=== PATIENT | female | born 1970 | race Caucasian/White ===

== ENCOUNTER 2023-02-21 14:33 | Emergency (ER) | payer BC, SELFPAY ==
--- NOTE | ~2023-02-21 | CT_ITS ---
EXAMINATION: CTA OF THE HEAD AND NECK CLINICAL INFORMATION: Right arm weakness and tingling. COMPARISON: None available. TECHNIQUE: Test bolus sequences followed by intravenous administration 70 mL of Omnipaque 350. Helical imaging was performed in the axial plane from the mediastinum to the skull vertex. Delayed postcontrast imaging of the head was also performed. The data was processed at the ophthalmic technologist's workstation for generation of MIP sequences. Three-dimensional volume rendered reformatted images were also generated at an offline 3-D workstation. Stenoses are assessed in accordance with NASCET criteria unless otherwise indicated. This CT examination was performed using dose optimization techniques as appropriate, variously including the following: *Automated exposure control *Adjustment of mA and/or kV according to patient size (this includes techniques or standardized protocols for targeted exams where dose is matched to indication/reason for exam; i.e. extremities or head) *Use of iterative reconstruction technique DLP: 1503 mGy-cm. FINDINGS: CT head: There is no evidence of acute intracranial hemorrhage or territorial infarction. There is no loss of vasquez to white matter differentiation. No abnormal mass effect or midline shift is seen. No extra-axial fluid collections are identified. There is no abnormal enhancement. The ventricles are normal in size. There is no abnormal attenuation within the brain parenchyma. The osseous structures and soft tissues are normal. The mastoid air cells and visualized portions of the paranasal sinuses are well aerated. CTA neck: The imaged aortic arch and origins of the great vessels are normal. The common carotid arteries are widely patent. The carotid bifurcations are normal. The cervical internal carotid arteries are normal. The vertebral arteries opacify normally and are of normal caliber. The soft tissues of the neck are unremarkable. Multilevel cervical spondylosis noted, particularly at the C3-C4 level with uncovertebral joint spurring and facet arthropathy resulting in severe left foraminal narrowing. The imaged portions of the lungs are relatively clear with mild subsegmental atelectasis. CTA head: The intradural vertebral arteries and basilar artery are normal. The posterior cerebral arteries are widely patent. The internal carotid arteries are of normal caliber. The JAX and MCA vascular complexes bilaterally are normal. The venous sinuses opacify normally. CT/CT angio head neck stroke IMPRESSION: Normal CT angiogram of the head and neck. No acute intracranial process. Imaging findings reported to Dr. Lehman at 3:40 PM on 02/21/2023.
--- NOTE | ~2023-02-21 | MR_ITS ---
EXAMINATION: MR BRAIN WITHOUT CONTRAST CLINICAL INFORMATION: Rule out stroke. Right arm weakness reported on CT imaging. COMPARISON: CT from 02/21/2023. TECHNIQUE: Multiplanar, multisequence imaging of the brain was performed without contrast. FINDINGS: No diffusion abnormalities are identified to suggest an acute infarct. The ventricles are normal in size. No mass effect or midline shift is seen. Minimal right frontal white matter signal changes noted which are nonspecific. No extra-axial fluid collections are seen. The brainstem and cerebellum are normal. The gradient refocused acquisition is normal. The craniovertebral junction, marrow signal, and midline structures are normal. The major intracranial flow voids at the level of the [place] are preserved. The dural venous sinus flow voids are maintained. The mastoid air cells and paranasal sinuses are well aerated. Left-sided hypertrophic facet arthropathy noted at the C3-C4 and C4-C5 levels. MR/MR head/brain wo con IMPRESSION: Minimal nonspecific right frontal white matter signal changes. Otherwise, no acute process. Left-sided hypertrophic facet arthropathy in the upper cervical spine.
--- NOTE | ~2023-02-21 | CT_ITS ---
EXAMINATION: CT HEAD WITHOUT CONTRAST (STROKE PROTOCOL) CLINICAL INFORMATION: Stroke protocol. Right arm weakness COMPARISON: None available. TECHNIQUE: Contiguous axial imaging was performed from the skull base to vertex without intravenous administration of contrast. This CT examination was performed using dose optimization techniques as appropriate, variously including the following: *Automated exposure control *Adjustment of mA and/or kV according to patient size (this includes techniques or standardized protocols for targeted exams where dose is matched to indication/reason for exam; i.e. extremities or head) *Use of iterative reconstruction technique DLP: 644 mGy-cm FINDINGS: No intra or extra-axial fluid collection or hemorrhage, mass, or mass effect. Sulci and ventricles appear normal. Calvarium intact. CT/CT head for stroke IMPRESSION: No acute intracranial pathology. Results will be telephoned by the [facility], to the emergency room. Results were telephoned in to Marisa Lehman, at 3:03 PM.
--- NOTE | 2023-02-21 14:44 | ECG_ITS ---
Test Reason : STROKE Blood Pressure : / mmHG Vent. Rate : 059 BPM Atrial Rate : 059 BPM P-R Int : 182 ms QRS Dur : 094 ms QT Int : 440 ms P-R-T Axes : 059 060 074 degrees QTc Int : 435 ms Sinus bradycardia Low voltage QRS Borderline ECG No previous ECGs available Referred By: Marisa Lehman Electronically Signed By:GEENA VIRAMONTES
[2023-02-21 14:50] VITALS: BP 152/90; PULSE 67; O2SAT 98
--- NOTE | 2023-02-21 14:50 | PC.NURSE ---
Pt off floor to CT.
--- NOTE | 2023-02-21 14:55 | ED.NEUROSD ---
HPI - Neuro Symptoms/Deficit General Chief Complaint: Weakness Stated Complaint: R WEAKNESS,TINGLY R FACE TO LEG PER EMS Time Seen by Provider: 02/21/23 14:41 Source: patient and EMS Mode of arrival: EMS Limitations: no limitations History of Present Illness HPI Narrative: Patient comes to emergency room complaining of right-sided weakness in her arm and tingling to the right face, arm and leg. According to EMS and the patient, patient was out shopping at the mall, patient had sudden onset of symptoms approximately 1 hour ago. When EMS arrived, the patient was crying, they are NIH score was 0. On arrival to the emergency room, patient was still crying, scared, NIH score of 0. Patient states that she feels that her right arm is weak and her face is tingly. According to the paramedics, even before the patient went shopping today, she already had some sensation of numbness/tingling since early in the morning. Related Data Previous Rx's Medication Instructions Recorded meclizine 50 mg tablet 50 mg PO BID PRN motion sickness 02/21/23 #14 tabs Allergies Allergy/AdvReac Type Severity Reaction Status Date / Time No Known Allergies Allergy Verified 02/21/23 14:43 Review of Systems Review of Systems: Constitutional : No Weight loss, No Fever, No Chills, No Night Sweats, No Fatigue, No Malaise ENT/Mouth : No Hearing loss, No Ear Pain, No Nasal Congestion, No Sinus Pain, No Hoarseness, No sore throat, No Rhinorrhea, No Swallowing Difficulty Eyes: No Eye Pain, No Swelling, No Redness, No Foreign Body, No Discharge, No Vision Changes Cardiovascular : No Chest Pain, No SOB, No Dyspnea on Exertion, No Orthopnea, No Edema, No Palpitations Respiratory : No Cough, No Sputum, No Wheezing, No Smoke Exposure, No Dyspnea Gastrointestinal : No Nausea, No Vomiting, No Diarrhea, No Constipation, No abdominal Pain, No Hematochezia, No Melena Genitourinary : no irregular bleeding, No Dysuria, No Urinary Frequency, No Hematuria, No Urinary Incontinence, No Urgency, No Flank Pain, No Urinary Flow Changes, No Hesitancy Musculoskeletal : No joint pain, No Myalgias, No Joint Swelling Skin : No Skin Lesions, No rash Neuro : Patient complaining of weakness in the right arm, tingling in the right side of the face arm and leg Psych : No Anxiety/Panic, No Depression, No SI/HI/AH/VH, No Social Issues, Heme/Lymph: No Bruising, No Bleeding,No Lymphadenopathy Endocrine : No Polyuria, No Polydipsia, No Temperature Intolerance [facility] Past Medical History Medical History (Updated 02/21/23 @ 19:56 by Marisa Lehman MD) Hyperlipidemia Social History Social History Smoked in Last 30 Days: No Use of substances other than those prescribed or required for medical reasons: No Advance Directives: No Advance Directives Information Provided: No Patient : No Physical Exam Vital Signs: Vital Signs: Last Vital Signs Temp 98.5 F 02/21/23 17:57 Pulse 61 02/21/23 17:57 Resp 15 02/21/23 17:57 BP 115/75 02/21/23 17:57 Pulse Ox 97 02/21/23 17:57 O2 Del Method Room Air 02/21/23 17:57 BMI result Body Mass Index 28.1 Const: Other: Appearance: Alert. Oriented X3. Scared, crying Eyes: Pupils equal, round and reactive to light. ENT: Pharynx normal. Neck: Normal inspection. Neck supple. No lymph nodes noted. No crepitus CVS: Normal heart rate and rhythm. Pulses normal. Normal S1 and S2 Respiratory: No respiratory distress. Breath sounds normal. No Wheezing. No rales Abdomen: Soft and nontender. No rigidity. No distention. Skin: Skin warm and dry. Normal skin color. Normal skin turgor. Extremities: No lower extremity edema. No Lacerations. No Rash Neuro: Oriented X 3. No motor deficit. Patient has normal speech, moving all extremities. When patient came in, she says that she had decreased strength in her right arm, however, it seemed that patient was not putting enough effort on physical exam on the right side, but with encouragement, patient was able to get good normal strength on both hands and both legs, getting an NIH score of 0 Psych: calm, cooperative, scared, crying Medications Administered Discontinued Medications Generic Name Dose Route Start Last Admin Trade Name Freq PRN Reason Stop Dose Admin Diazepam 2 mg 02/21/23 16:21 02/21/23 16:46 Diazepam 2 Mg Tablet PO 02/21/23 16:22 2 mg ONCE ONE Administration Iohexol 70 ml 02/21/23 15:15 02/21/23 15:16 Iohexol 350 Mg/Ml 100 Ml Infus..Btl IV 02/21/23 15:16 70 ml ONCE ONE Administration Meclizine HCl 50 mg 02/21/23 16:21 02/21/23 16:46 Meclizine Hcl 25 Mg Tablet PO 02/21/23 16:22 50 mg ONCE ONE Administration Medical Decision Making Medical Decision Making [facility] Narrative: -I discussed the CT scan without contrast of the brain with Radiology, no acute findings -I also discussed the CTA findings of head and neck with [place] radiologist on-call, no acute findings -NIH score 0 -the stroke team also participated in the patient's evaluation, they also got an NIH score of 0. -at this time, tPA is not recommended -patient seems to have history of migraines, anxiety. -doctor Tami assessed the patient at bedside, patient's symptoms seem to be more likely secondary to a middle ear problem rather than stroke. Physical exam is not compatible with any specific lesion/stroke -patient getting p.o. meclizine and p.o. diazepam to help with her symptoms. -recommendations: MRI without contrast, which is pending. MRI results: Nonspecific right frontal white matter signal changes, otherwise no acute process. -patient feels back to baseline, has mild headache, no neurological deficits, patient was able to ambulate with normal unassisted gait to the bathroom. Patient did not have any falls or unsteady gait. Differential Diagnosis Differential Diagnoses: The differential diagnosis associated with the presentation includes (CVA, TIA, vertigo, BPPV, anxiety) Admission/Observation Consideration of admission/observation: Escalation of care including admission/observation considered (Given patient's initial presentation, admission was considered) Consult Healthcare Provider Management of the patient was discussed with: Package Worker Lab Data [facility] Lab Attestation statement: I reviewed the patient's lab results. 02/21/23 15:56 02/21/23 15:56 Labs: Lab Results 02/21/23 02/21/23 02/21/23 Range/Units 15:56 16:02 Unknown WBC 5.4 (4.8-10.8) X10*3/uL RBC 4.46 (4.20-5.50) X10*6/uL Hgb 13.3 (12.0-16.0) g/dl Hct 39.4 (37.0-47.0) % MCV 88.3 (80.0-98.0) fL MCH 29.8 (27.0-33.0) pg MCHC 33.8 (31.0-35.0) g/dl RDW 12.4 (11.0-16.0) % Plt Count 249 (160-400) X10*3/uL MPV 9.2 L (9.4-12.3) fL Immature Gran % (Auto) 0.2 (0.0-0.4) % Neut % (Auto) 52.8 (45-73) % Lymph % (Auto) 36.0 (20-40) % [place] % (Auto) 8.1 (2-11) % Eos % (Auto) 2.2 (0-4) % Baso % (Auto) 0.7 (0-2) % Lymph # (Auto) 2.0 (1.2-4.9) X10*3/uL [place] # (Auto) 0.4 (0.1-1.2) X10*3/uL Eos # (Auto) 0.1 (0.0-0.4) X10*3/uL Baso # (Auto) 0.0 (0.0-0.2) X10*3/uL Abs Immat Gran (auto) 0.01 (0.00-0.03) X10*3/uL Absolute Neuts (auto) 2.9 (2.0-8.3) x10*3/uL Absolute Nucleated RBC 0.000 (0.0-0.012) X10*3/uL Nucleated RBC % (auto) 0.0 (0.0-0.2) /100WBC PT 11.3 (11.1-13.3) SEC INR 0.9 (0.9-1.1) Sodium 143 (135-145) mmol/L Potassium 3.8 (3.3-5.1) mmol/L Chloride 109 H (96-108) mmol/L Carbon Dioxide 26 (22-29) mmol/L Anion Gap 12 (12-20) BUN 12 (9-16) mg/dL Creatinine 0.69 (0.5-1.4) mg/dL Estim Creat Clear Calc 102.3 Estimated GFR > 60 POC Glucose 83 (60-115) mg/dL Random Glucose 81 (60-115) mg/dL Calcium 9.0 (8.4-10.2) mg/dL Magnesium 2.2 (1.6-2.6) mg/dL Total Bilirubin 1.0 (0.0-1.0) mg/dL Direct Bilirubin 0.3 (0.0-0.5) mg/dL AST 20 (5-31) U/L ALT 25 (0-31) U/L Alkaline Phosphatase 66 (39-117) U/L Troponin I High Sens 7.0 (<3.5-17.0) ng/L Total Protein 7.1 (6.5-8.0) g/dL Albumin 4.1 (3.5-5.0) g/dL Urine Color Yellow Urine Appearance Clear Urine pH 7.5 (5.0-9.0) Ur Specific [place] 1.025 (1.005-1.025) Urine Protein Negative (Neg-Trace) mg/dL Urine Glucose (UA) Negative (Negative) mg/dL Urine Ketones Negative (Negative) mg/dL Urine Blood Negative (Negative) Urine Nitrite Negative (Negative) Ur Leukocyte Esterase Negative (Negative) Ethyl Alcohol < 10 mg/dL Independent Interpretation I performed an independent interpretation of an: EKG and CT Scan Radiology Impression Discussion of test interpretation with radiology: I discussed test interpretation with the radiologist and I have reviewed the radiologist's reading. Radiologist Impression: FINDINGS: No diffusion abnormalities are identified to suggest an acute infarct. The ventricles are normal in size. No mass effect or midline shift is seen. Minimal right frontal white matter signal changes noted which are nonspecific. No extra-axial fluid collections are seen. The brainstem and cerebellum are normal. The gradient refocused acquisition is normal. The craniovertebral junction, marrow signal, and midline structures are normal. The major intracranial flow voids at the level of the [place] are preserved. The dural venous sinus flow voids are maintained. The mastoid air cells and paranasal sinuses are well aerated. Left-sided hypertrophic facet arthropathy noted at the C3-C4 and C4-C5 levels. MR/MR head/brain wo con IMPRESSION: Minimal nonspecific right frontal white matter signal changes. Otherwise, no acute process. Left-sided hypertrophic facet arthropathy in the upper cervical spine. CT head: There is no evidence of acute intracranial hemorrhage or territorial infarction. There is no loss of vasquez to white matter differentiation. No abnormal mass effect or midline shift is seen. No extra-axial fluid collections are identified. There is no abnormal enhancement. The ventricles are normal in size. There is no abnormal attenuation within the brain parenchyma. The osseous structures and soft tissues are normal. The mastoid air cells and visualized portions of the paranasal sinuses are well aerated. CTA neck: The imaged aortic arch and origins of the great vessels are normal. The common carotid arteries are widely patent. The carotid bifurcations are normal. The cervical internal carotid arteries are normal. The vertebral arteries opacify normally and are of normal caliber. The soft tissues of the neck are unremarkable. Multilevel cervical spondylosis noted, particularly at the C3-C4 level with uncovertebral joint spurring and facet arthropathy resulting in severe left foraminal narrowing. The imaged portions of the lungs are relatively clear with mild subsegmental atelectasis. CTA head: The intradural vertebral arteries and basilar artery are normal. The posterior cerebral arteries are widely patent. The internal carotid arteries are of normal caliber. The JAX and MCA vascular complexes bilaterally are normal. The venous sinuses opacify normally. CT/CT angio head neck stroke IMPRESSION: Normal CT angiogram of the head and neck. No acute intracranial process. Independent Historian Clinical information obtained from an independent historian. History obtained from or confirmed by: Other (Daughter) NIH Stroke Scale Internal: Initial- Upon Arrival Level of Consciousness: Alert Level of Consciousness Questions: Answers both questions correctly Level of Consciousness Commands: Performs both tasks correctly Best Gaze: Normal Visual: No visual loss Facial Palsy: Normal Motor Arm (Right): No drift Motor Arm (Left): No drift Motor Leg (Right): No drift Motor Leg (Left): No drift Limb Ataxia: Absent Sensory: Normal Best Language: No aphasia Dysarthia: Normal Extinction and Inattention: No abnormality Score: 0 Critical Care Time Critical Care Time Critical Care Time: Yes Total Critical Care Time: 90 Attestation: I have personally provided critical care time. Time includes review of lab data, radiology results, discussion with consultants, and monitoring for potential decompensation. Intervention performed as documented. Discharge Plan Discharge Clinical Impression: Anxiety, Dizziness Patient Disposition: Home, Self-Care Instructions: Dizziness (ED) Additional Instructions: Please follow-up with your primary care physician tomorrow. If you have any worsening or new symptoms, please return to the emergency room or call 911 Prescriptions: New meclizine 50 mg tablet 50 mg PO BID PRN (Reason: motion sickness) Qty: 14 0RF Referrals: Dahiana Garrett MD [Physician] - 02/27/23
[2023-02-21] MEDS: iohexoL 350 MG/ML 100 ML INFUS..BTL 70 ML IV (15:16)
[2023-02-21 15:40] VITALS: BP 144/85; PULSE 76; RESP 16; TEMP 36.6; O2SAT 96; BMI 28.1
[2023-02-21 16:00] LABS: MANUAL DIFF FLAG NO
[2023-02-21 16:05] VITALS: BP 143/75; PULSE 62; RESP 15; TEMP 36.8; O2SAT 98
--- NOTE | 2023-02-21 16:09 | MHC.EDTECH ---
THIS PCT ASSUMED CARE OF PT AT 1550 ,EKG TAKEN ,BLOOD DRAWN AND SENT TO LAB ,BLOOD SUGAR CHECK ,PT WAS CUSTOMER SERVICE ADVISOR INTO HOSPITAL ATTIRE ,PT RESTING QUIETLY IN BED ,PT FAMILY MEMBERS AT BEDSIDE .
[2023-02-21 16:10] VITALS: BP 143/75; PULSE 67; RESP 16; TEMP 36.6; O2SAT 95
[2023-02-21 16:11] LABS: Glucose, Whole Blood 83 mg/dL (60-115)
[2023-02-21 16:12] LABS: INTERNATIONAL NORM RATIO 0.9 (0.9-1.1); Prothrombin Time 11.3 SEC (11.1-13.3)
--- NOTE | 2023-02-21 16:15 | PC.NURSE ---
Neurologist at bedside
[2023-02-21 16:23] LABS: Alanine Aminotransferase 25 U/L (0-31); Albumin Level 4.1 g/dL (3.5-5.0); Alkaline Phosphatase 66 U/L (39-117); Anion Gap 12 (12-20); Aspartate Amino Transferase 20 U/L (5-31); Basophils Percent Auto 0.7 % (0-2); Bilirubin Direct 0.3 mg/dL (0.0-0.5); Blood Urea Nitrogen 12 mg/dL (9-16); Carbon Dioxide 26 mmol/L (22-29); Chloride 109 mmol/L (96-108); Creatinine Clr Calc Pharmacy 102.3; Eosinophils Absolute Auto 0.1 X10*3/uL (0.0-0.4); Eosinophils Percent Auto 2.2 % (0-4); Estimated Glomerular Filt Rate > 60; Ethanol < 10 mg/dL; Glucose Random 81 mg/dL (60-115); Hematocrit 39.4 % (37.0-47.0); Hemoglobin 13.3 g/dl (12.0-16.0); Imm Gran Abs Auto 0.01 X10*3/uL (0.00-0.03); Imm Gran Pct Auto 0.2 % (0.0-0.4); Magnesium 2.2 mg/dL (1.6-2.6); Mean Corpuscular HGB Conc 33.8 g/dl (31.0-35.0); Mean Corpuscular Hemoglobin 29.8 pg (27.0-33.0); Mean Corpuscular Volume 88.3 fL (80.0-98.0); Mean Platelet Volume 9.2 fL (9.4-12.3); Monocytes Absolute Auto 0.4 X10*3/uL (0.1-1.2); Monocytes Percent Auto 8.1 % (2-11); Neutrophils Absolute Auto 2.9 x10*3/uL (2.0-8.3); Neutrophils Percent Auto 52.8 % (45-73); Platelet Count 249 X10*3/uL (160-400); Potassium 3.8 mmol/L (3.3-5.1); Red Blood Count 4.46 X10*6/uL (4.20-5.50); Red Cell Distribution Width 12.4 % (11.0-16.0); Sodium 143 mmol/L (135-145); Total Protein 7.1 g/dL (6.5-8.0); White Blood Count 5.4 X10*3/uL (4.8-10.8)
--- NOTE | 2023-02-21 16:35 | PC.NURSE ---
Pt arrived to ED via EMS from [facility]. Pt reports that while at the mall, she felt that she could not walk in a straight line. States that this morning she woke with a headache. No c/o headache presently. Reports an episode of dizziness when she bent over this morning to unplug something. Family member had to finish the task because she felt dizzy. Patient very tearful. Speaking in full sentences. Able to follow commands. Swallow eval completed and patient passed without incident. Dr Garrett to bedside for evaluation. MRI recommended along with Meclizine and something for anxiety. Dr. Lehman updated. Family and patient aware and agreeable to care plan. Stroke education provided.
[2023-02-21] MEDS: diazePAM 2 MG TABLET PO (16:46)
[2023-02-21] MEDS: Meclizine HCl 25 MG TABLET 50 MG PO (16:46)
[2023-02-21 17:35] LABS: Appearance Urine Clear; Color Urine Yellow; Glucose Urine UA Negative (Negative); Leukocyte Esterase Urine Negative (Negative); Nitrite Urine Negative (Negative); PH 7.5 (5.0-9.0); Specific Gravity - Urine 1.025 (1.005-1.025); Urine Blood Negative (Negative); Urine Ketones Negative (Negative); Urine Protein Negative (Neg-Trace)
[2023-02-21 17:57] VITALS: BP 115/75; PULSE 61; RESP 15; TEMP 36.9; O2SAT 97
--- NOTE | 2023-02-21 17:59 | MHC.EDTECH ---
ROUNDING DONE ,VITALS TAKEN ,PT ON HER WAY TO MRI .
--- NOTE | 2023-02-21 19:03 | P.CNNE_ITS ---
History of Present Illness Data of Consult Service Date: 02/21/23 Primary Care Provider: Guero Cadet MD [facility] Reason for consult: imbalance and weakness This is a 52 yr old woman who had an episod eof vertigo on bending down this morning so that her had to do what she was doing. Later she was [place] the [place] and started to feel that she was pulling to one [place] walking and then thought she had right-sided weakness in her arm and tingling to the right face, arm and leg. When EMS arrived, the patient was crying, they are NIH score was 0. On arrival to the emergency room, patient was still crying, scared, NIH score of 0. She says she prefers to keep her eyes closed, although she's not photophobic. Earlier she had a headache, but now it is 5 on a scale of 10. She deniees having had mmigraines in the past. No history of stroke. She takes 5 mg of her escitalopram at home and a cholesterol medicine. Her symptoms have improved but she keeps her eyes closed and he manifests significant degree of anxiety. Her CT scan of the brain and CTA were unremarkable. Review of Systems 2 Review of Systems: Constitutional : No Weight loss, No Fever, No Chills, No Night Sweats, No Fatigue, No Malaise ENT/Mouth : No Hearing loss, No Ear Pain, No Nasal Congestion, No Sinus Pain, No Hoarseness, No sore throat, No Rhinorrhea, No Swallowing Difficulty Eyes: No Eye Pain, No Swelling, No Redness, No Foreign Body, No Discharge, No Vision Changes Cardiovascular : No Chest Pain, No SOB, No Dyspnea on Exertion, No Orthopnea, No Edema, No Palpitations Respiratory : No Cough, No Sputum, No Wheezing, No Smoke Exposure, No Dyspnea Gastrointestinal : No Nausea, No Vomiting, No Diarrhea, No Constipation, No abdominal Pain, No Hematochezia, No Melena Genitourinary : no irregular bleeding, No Dysuria, No Urinary Frequency, No Hematuria, No Urinary Incontinence, No Urgency, No Flank Pain, No Urinary Flow Changes, No Hesitancy Musculoskeletal : No joint pain, No Myalgias, No Joint Swelling Skin : No Skin Lesions, No rash Neuro : Patient complaining of weakness in the right arm, tingling in the right side of the face arm and leg Psych : No Anxiety/Panic, No Depression, No SI/HI/AH/VH, No Social Issues, Heme/Lymph: No Bruising, No Bleeding,No Lymphadenopathy Endocrine : No Polyuria, No Polydipsia, No Temperature Intolerance [facility] Past Medical History Medical History (Updated 02/21/23 @ 19:09 by Dahiana Garrett MD) Hyperlipidemia Social History Social History Smoked in Last 30 Days: No Use of substances other than those prescribed or required for medical reasons: No Advance Directives: No Advance Directives Information Provided: No Patient : No Meds Allergies Allergy/AdvReac Type Severity Reaction Status Date / Time No Known Allergies Allergy Verified 02/21/23 14:43 Physical Exam 2 Vital Signs: Vital Signs: Last Vital Signs Temp 98.5 F 02/21/23 17:57 Pulse 61 02/21/23 17:57 Resp 15 02/21/23 17:57 BP 115/75 02/21/23 17:57 Pulse Ox 97 02/21/23 17:57 O2 Del Method Room Air 02/21/23 17:57 BMI result Body Mass Index 28.1 Const: Other: Appearance: Alert. Oriented X3. Scared, crying Eyes: Pupils equal, round and reactive to light. ENT: Pharynx normal. Neck: Normal inspection. Neck supple. No lymph nodes noted. No crepitus CVS: Normal heart rate and rhythm. Pulses normal. Normal S1 and S2 Respiratory: No respiratory distress. Breath sounds normal. No Wheezing. No rales Abdomen: Soft and nontender. No rigidity. No distention. Skin: Skin warm and dry. Normal skin color. Normal skin turgor. Extremities: No lower extremity edema. No Lacerations. No Rash Neuro: Oriented X 3. No motor deficit. Patient has normal speech, moving all extremities. When patient came in, she says that she had decreased strength in her right arm, however, it seemed that patient was not putting enough effort on physical exam on the right side, but with encouragement, patient was able to get good normal strength on both hands and both legs, getting an NIH score of 0 Psych: calm, cooperative, scared, crying Neuro: Other: She talks in a guarded way softly keeps her eyes closed and says she can't open them or prefers not to open them. Her cranial nerves II through XII are normal including visual rice. There is no drift of for extended upper extremities, however. On voluntary motor testing there is some maximal voluntary effort and hypo-performance In hand continuing education dean and in attempting to push my hand away. This is clearly disproportionate to the fact that she has no drift of the upper extremities. Reflexes symmetrical. Plantars months of flexor. There are 2 or 3 beats of subtle nystagmus on right lateral gaze. Results Labs 02/21/23 15:56 02/21/23 15:56 Labs: Short CBC 02/21/23 Range/Units 15:56 WBC 5.4 (4.8-10.8) X10*3/uL Hgb 13.3 (12.0-16.0) g/dl Hct 39.4 (37.0-47.0) % Plt Count 249 (160-400) X10*3/uL BMP 02/21/23 15:56 Sodium 143 Potassium 3.8 Chloride 109 H Carbon Dioxide 26 BUN 12 Creatinine 0.69 Calcium 9.0 Liver Function 02/21/23 Range/Units 15:56 Total Bilirubin 1.0 (0.0-1.0) mg/dL Direct Bilirubin 0.3 (0.0-0.5) mg/dL AST 20 (5-31) U/L ALT 25 (0-31) U/L Alkaline Phosphatase 66 (39-117) U/L Albumin 4.1 (3.5-5.0) g/dL Urine 02/21/23 Range/Units Unknown Urine Color Yellow Urine Appearance Clear Urine pH 7.5 (5.0-9.0) Ur Specific [place] 1.025 (1.005-1.025) Urine Protein Negative (Neg-Trace) mg/dL Urine Glucose (UA) Negative (Negative) mg/dL Assessment and Plan (1) Dizziness: Status: Acute I 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 This resulted in the morning vertigo and the sensation of pulling to one side in the mall and the few beats of nystagmus. I do not believe that she's had a stroke. Recommendation: MRI of the brain to rule out posture circulation stroke, although this appears unlikely. Meclizine 25 mg 3 times a day (2) Anxiety: Status: Acute She has a significant component of anxiety that is resulting in neurological findings consistent with a conversion disorder. She has been reassured and comforted. If MRI is negative she can be discharged home on meclizine and an increased dose of escitalopram. Procedures Date of Service Date of Service: 02/21/23
[2023-02-21 19:42] VITALS: BP 109/69; PULSE 62; RESP 16; TEMP 36.9; O2SAT 97
[2023-02-21] MEDS: Ketorolac Tromethamine 30 MG/ML VIAL IVPUSH (20:00)
[2023-02-21 20:51] LABS: Amphetamine Screen Urine Not Detected (Not Detect); Barbiturates, Urine Not Detected (Not Detect); Benzodiazepines Screen Urine Not Detected (Not Detect); Cannabinoid Screen Urine Not Detected (Not Detect); Cocaine Screen Urine Not Detected (Not Detect); Fentanyl, urine Not Detected (Not Detect); Opiate Screen Urine Not Detected (Not Detect); Phencyclidine Screen Urine Not Detected (Not Detect)
== END 2023-02-21 21:20 | disposition home or self-care (01) ==
PROVIDERS: Emergency Provider Emergency Medicine; PCP Internal Medicine
DX: R42 Dizziness and giddiness (principal); F41.9 Anxiety disorder, unspecified; R53.1 Weakness; R29.700 NIHSS score 0; E78.5 Hyperlipidemia, unspecified
CPT/HCPCS: 36415; 70450; 70496; 70498; 70551; 80048; 80076; 80307; 81003; 82947; 83735; 84484; 85025; 85610; 93005; 96374; 99285; J1885; Q9967

== ENCOUNTER → 2023-02-21 14:44 | Outpatient (BNV) | payer BC, SELFPAY | PROVIDERS: Emergency Provider Emergency Medicine; PCP Internal Medicine; Visit Provider Internal Medicine | DX: R00.1 Bradycardia, unspecified (principal) | CPT/HCPCS: 93010 ==